=== PATIENT | female | born 1940 | race Caucasian/White ===

== ENCOUNTER 2019-05-14 06:40 | Day surgery (SDC) | payer MEDICARE, BC ==
[~2019-05-14 06:40] MED LIST: BUPIVACAINE HCL 0.75% INJ/PF (7.5 MG/1 ML) 10 ML SDV OD PRN; KETOROLAC TROMETHAMINE 0.45% 4 DROP/0.4 ML DROPERETTE OD PRN; LIDOCAINE 4% INJ/PF (40 MG/ML) 5 ML AMPUL OD PRN
[2019-05-14] MEDS ORDERED: EPINEPHRINE INJ/PF 1 MG/1 ML AMPULE ONE (07:10)
[2019-05-14] MEDS ORDERED: LIDOCAINE 1% INJ-PF (10 MG/ML) 30 ML SDV ONE (07:10)
[2019-05-14] MEDS ORDERED: CHONDR SU A NA/HYALUR INTRAOC KIT (SURGICARE) ONE (07:11)
[2019-05-14] MEDS: BESIFLOXACIN HCL 0.6% OPH SUSP 5 ML BOTTLE OD PRN ×4 (07:15→08:18)
[2019-05-14] MEDS: TROPICAMIDE 1% OPH SOLN 3 ML OD PRN ×3 (07:15→07:35)
[2019-05-14] MEDS: TETRACAINE HCL 0.5% OPH SOLN 4 ML OD PRN ×3 (07:15→07:56)
[2019-05-14] MEDS: CYCLOPENTOLATE 0.2%/PHENYLEPHRINE 1% OPH SOLN 2 ML OD PRN ×3 (07:15→07:35)
[2019-05-14] MEDS ORDERED: MIDAZOLAM 2 MG/2 ML INJ ONE (07:33)
[2019-05-14] MEDS ORDERED: FENTANYL CITRATE INJ/PF 100 MCG/2 ML AMPUL ONE (07:33)
[2019-05-14] MEDS: DORZOLAMIDE HCL 2%/TIMOLOL MALEAT 0.5% OPH SOLN 10 ML OD PRN ×2 (08:11→08:18)
--- NOTE | 2019-05-14 13:55 | PDOC DISCHARGE SUMMARY ---
Discharge Summary-[facility] Discharge Summary: DATE: 05/14/2019 FINAL DIAGNOSIS: CATARACT, RIGHT EYE PROCEDURE: Cataract extraction with intraocular lens implant right eye HOSPITAL COURSE: The patient will be discharged to home. The patient is instructed to resume preoperative medications, take Tylenol as needed for discomfort, to keep the eye shielded, They should use the prescribed antibiotic, NSAID, and steroid at 3 PM and 8 PM., and to follow up in my office in 1 day.
--- NOTE | 2019-05-14 13:55 | Operative Report ---
Operative Report-[facility] Operative Report: DATE OF SURGERY: 05/14/2019 PREOPERATIVE DIAGNOSIS: CATARACT, RIGHT EYE. POSTOPERATIVE DIAGNOSIS: CATARACT, RIGHT EYE. PROCEDURE PERFORMED: PHACOEMULSIFICATION WITH POSTERIOR CHAMBER INTRAOCULAR LENS, RIGHT EYE. Intraocular Lens Model : SN 60 WF 19.5 Total Phaco Time: 50 seconds SURGEON: GOLDY PAUL MD ANESTHESIA: TOPICAL WITH MAC. INDICATIONS FOR SURGERY: Difficulty reading small print and glare with night driving. PROCEDURE: The patient was brought to the Operating Room and placed on the operative table. Following tetracaine drops, topical anesthesia was administered. This consisted of instrument wipe pledgets soaked in a solution of 4% Xylocaine mixed with 0.75% Marcaine in a 1:2 ratio. A 2 x 1 cm pledget was placed in the superior fornix. A 1 x 1 cm pledget was placed in the inferior fornix. The eye was patched shut for 5 minutes. The patch was removed. The eye was sterilely prepped and draped in the usual manner. Lid speculum was placed in the eye. The pledgets were removed. 4-0 black silk sutures were placed around the superior and the inferior rectus muscles to be used as traction. A conjunctival peritomy was made at the 10 o'clock position. Hemostasis was obtained with bipolar cautery. A posterior limbal groove was created using a crescent knife and dissected anteriorly towards the cornea. A sharp point blade was used to create a paracentesis site at the 2 o'clock position. 0.2 cc non preserved Lidocaine was injected into the anterior chamber. A 2.4 mm keratome was used to enter the anterior chamber through the groove. Viscoelastic was injected into the anterior chamber. An anterior capsulotomy was performed using Utrata forceps in a capsulorrhexis fashion. Hydrodissection and hydrodelineation were performed. Phacoemulsification was performed in [id number] technique. Following this, the I/A unit was used to remove residual cortex. Viscoelastic was injected into the capsular bag. The Intraocular lens was placed in the capsular bag. The I/A unit was used to remove residual viscoelastic. The wound was seen to be watertight under high and low pressure, and no sutures were placed. The intraocular lens was well centered. The pressure was adjusted in the eye to normal pressure. The 4-0 black silk sutures and lid speculum were removed. The eye was shielded after Besivance and Cosopt drops were placed. The patient tolerated the procedure well and was sent to the Recovery Room in good condition.
== END 2019-05-14 09:02 | disposition home or self-care (01) ==
LOC: SC 06:40
PROVIDERS: ATTEND Ophthalmology
DX: H25.811 Combined forms of age-related cataract, right eye (principal); H04.123 Dry eye syndrome of bilateral lacrimal glands; H17.89 Other corneal scars and opacities; Z96.1 Presence of intraocular lens; H02.832 Dermatochalasis of right lower eyelid; H02.831 Dermatochalasis of right upper eyelid; Z79.01 Long term (current) use of anticoagulants; Z79.899 Other long term (current) drug therapy
CPT/HCPCS: 66984; 82962; J2250; J3490 ×5; A9270; J0171; J3010; V2632

== ENCOUNTER 2019-11-28 09:40 | Day surgery (SDC) | payer MEDICARE, BC ==
[2019-11-28] MEDS ORDERED: MIDAZOLAM 2 MG/2 ML INJ ONE (10:34)
[2019-11-28] MEDS ORDERED: FENTANYL CITRATE INJ/PF 100 MCG/2 ML AMPUL ONE (10:34)
[2019-11-28] MEDS ORDERED: BUPIVACAINE HCL 0.75% INJ/PF (7.5 MG/1 ML) 10 ML SDV ONE (10:43)
[2019-11-28] MEDS ORDERED: TOBRAMYCIN SULFATE/DEXAMETH OPH OINTMENT 3.5 GM ONE (10:43)
[2019-11-28] MEDS ORDERED: LIDOCAINE 2%/EPINEPHRINE INJ 20 ML VIAL ONE (10:43)
[2019-11-28] MEDS ORDERED: BALANCED SALT IRRIG SOLN COMB2 15 ML BOTTLE ONE (10:43)
[2019-11-28] MEDS ORDERED: POVIDONE-IODINE 5% OPH PREP SOLN 30 ML ONE (10:43)
[2019-11-28] MEDS ORDERED: TETRACAINE HCL 0.5% OPH SOLN 4 ML ONE (10:43)
[2019-11-28] MEDS: NORMAL SALINE INJ/PF 0.9% 10 ML SDV ONE ×2 (11:21→11:30)
[2019-11-28] MEDS: TRANEXAMIC ACID INJ/PF 1,000 MG/10 ML SDV ONE ×2 (11:21→11:30)
[2019-11-28] MEDS: NEO/POLYMYX B SULF/DEXAMETH OPH OINTMENT 3.5 GM ONE ×2 (11:55)
--- NOTE | 2019-11-28 12:16 | Operative Report ---
Operative Report-[facility] Operative Report: DATE OF SURGERY: 11/28/2019 PREOPERATIVE DIAGNOSIS: Bilateral upper eyelid Dermatochalasis with visual field loss POSTOPERATIVE DIAGNOSIS: Bilateral upper eyelid Dermatochalasis with visual field loss PROCEDURE PERFORMED: Bilateral upper eyelid blepharoplasty SURGEON: Sudha Davis MD ANESTHESIA: Local with MAC INDICATION FOR SURGERY: Lid skin obstructs vision and affects reading. having to elevate eyelids to see better PROCEDURE: The patient was brought to the operating room and both upper eyelids were sterilely prepped and draped in the usual manner. Tetracaine drops were placed in the eyes. Attention was directed to both upper lids where the upper lid crease was marked and 0.3 mm forceps were used to estimate the excess upper eyelid skin to be excised. This was marked in an elliptical fashion. Local anesthesia was administered. This consisted of 2% Xylocaine with epinephrine mix ed with 0.75% Marcaine. Approximately 2.5 mL's of this was used to infiltrate both upper eyelids in the previous marked areas and the local anesthetic was diffuse with a Q-tip. Attention was directed to the left upper lid where the elliptical of skin was removed. Hemostasis was obtained with bipolar cautery. The orbital septum was opened and prolapse retroseptal fat was grasped with a hemostat, cut and cauterized. Trenexamic acid soaked on a pad was placed on the incision. Identical procedure was performed on the right upper lid. Wound closure was completed with 3 interrupted 6-0 silk sutures, equally spaced through both upper lids, taking a deep bite of the fascia. This was followed by a running 6-0 nylon suture. There was full closure of the lids and good hemostasis at the end of the surgery. Maxitrol ointment was placed on both upper lids. Patient tolerated procedure well and sent to recovery room and in good condition.
== END 2019-11-28 12:46 | disposition home or self-care (01) ==
LOC: SC 09:40
PROVIDERS: ATTEND Ophthalmology
DX: H02.831 Dermatochalasis of right upper eyelid (principal); H02.834 Dermatochalasis of left upper eyelid; H53.453 Other localized visual field defect, bilateral; I10 Essential (primary) hypertension; E78.00 Pure hypercholesterolemia, unspecified; Z79.01 Long term (current) use of anticoagulants; Z79.84 Long term (current) use of oral hypoglycemic drugs; Z79.899 Other long term (current) drug therapy; E11.9 Type 2 diabetes mellitus without complications; D64.9 Anemia, unspecified; Z88.5 Allergy status to narcotic agent
CPT/HCPCS: 82962; 00103; 15823; J2250; J3490 ×7; J3010; A9270; 103